=== PATIENT | female | born 1990 | race Caucasian/White ===

== ENCOUNTER 2018-04-28 12:09 | Emergency (ER) | payer OTHER ==
[2018-04-28 13:31] LABS: Hep C IgG Ab Non-Reactive (NonReactive); Hep C Index 0.11 S/CO (0-0.79)
[2018-04-28 14:53] LABS: HIV (1/2) Antibody/Antigen Reflxed Confirmation (NonReactive); Hep B Surf AB Reactive (NonReactive)
[2018-04-28 14:54] LABS: HBSAB Concentration 63.28 mIU/mL; HIV 1/2 INDEX 1.18 S/CO (<1.00)
== END 2018-04-28 15:45 | disposition home or self-care (01) ==
LOC: ERS 12:09
DX: Z77.21 Contact with and (suspected) exposure to potentially hazardous body fluids (principal)
CPT/HCPCS: 36415; 86701; 86702; 86706; 86803; 87389; 99283

== ENCOUNTER 2019-06-25 18:18 | Emergency (ER) | payer OTHER ==
[2019-06-25 19:41] LABS: HIV (1/2) Antibody/Antigen Non-Reactive (NonReactive); HIV 1/2 INDEX 0.04 S/CO (<1.00); Hep C IgG Ab Non-Reactive (NonReactive)
[2019-06-25 19:42] LABS: HBSAB Concentration 63.55 mIU/mL; Hep B Surf AB Reactive (NonReactive)
== END 2019-06-25 19:10 | disposition home or self-care (01) ==
LOC: ERS 18:18
DX: Z77.21 Contact with and (suspected) exposure to potentially hazardous body fluids (principal); F41.9 Anxiety disorder, unspecified; Z79.899 Other long term (current) drug therapy
CPT/HCPCS: 36415; 86706; 86803; 87389; 99283